=== PATIENT | male | born 1940 | race Caucasian/White ===

== ENCOUNTER → 2018-05-01 06:44 | Outpatient (CLI) | payer MEDICARE, SELFPAY ==
--- NOTE | 2018-05-01 10:01 | PFTCOMP_ITS ---
COMPLETE PULMONARY FUNCTION TEST INTERPRETATION Brief HPI: Patient is a 77 year old male, currently under the care of Henrietta Andujar, who presents to [facility] for complete pulmonary function tests secondary to diagnosis of COPD. Respiratory therapist reports good effort and reproducible results. Interpretation: Forced expiration spirometry shows no large airways obstructive ventilatory defect with an FEV1 of 87% predicted. There is no significant bronchodilator response by strict ATS criteria. Spirograms are of good quality and plateau normally. The respiratory flow volume loop shows a normal pattern. Lung volumes by body plethysmography show a decreased total lung capacity at 4.65 L, 70% predicted. All other lung volumes are reduced symmetrically. Diffusion capacity by carbon monoxide is normal at 85% predicted. The airway resistance is normal. No previous pulmonary function tests were available for review. Impression: Mild restrictive ventilatory defect in a pattern consistent with musculoskeletal restriction. Air flows and DLCO are preserved, so doubt COPD as a diagnosis.
== END ==
PROVIDERS: Family Provider Nurse Practitioner; PCP Nurse Practitioner; Referring Provider Nurse Practitioner; Visit Provider Nurse Practitioner
DX: J44.9 Chronic obstructive pulmonary disease, unspecified (principal)
CPT/HCPCS: 94060; 94726; 94729

== ENCOUNTER → 2018-08-28 09:10 | Outpatient (CLI) | payer MEDICARE, SELFPAY ==
[2018-09-01 01:08] LABS: Cashew <0.10 kU/L (Class 0); Egg, Whole <0.10 kU/L (Class 0); Gluten <0.10 kU/L (Class 0); Orange <0.10 kU/L (Class 0); Potato, White <0.10 kU/L (Class 0); Rice <0.10 kU/L (Class 0); Strawberry <0.10 kU/L (Class 0); Walnut, (Food) <0.10 kU/L (Class 0); Wheat <0.10 kU/L (Class 0)
[2018-09-01 09:09] LABS: Alternaria tenuis <0.10 kU/L (Class 0); Ash, White <0.10 kU/L (Class 0); Aspergillus fumigatus <0.10 kU/L (Class 0); Bermuda Grass <0.10 kU/L (Class 0); Birch <0.10 kU/L (Class 0); Black Walnut <0.10 kU/L (Class 0); Cat Hair / Dander,Stand <0.10 kU/L (Class 0); Cedar, Mountain <0.10 kU/L (Class 0); Cladosporium herbarum <0.10 kU/L (Class 0); Cockroach, American <0.10 kU/L (Class 0); Cottonwood <0.10 kU/L (Class 0); D farinae Mite <0.10 kU/L (Class 0); D pteronyssinus <0.10 kU/L (Class 0); Dog Epithelia <0.10 kU/L (Class 0); Elm, American White <0.10 kU/L (Class 0); Maple/Box Elder <0.10 kU/L (Class 0); Mulberry, White <0.10 kU/L (Class 0); Oak, White <0.10 kU/L (Class 0); Pecan <0.10 kU/L (Class 0); Penicillium Notatum <0.10 kU/L (Class 0); Pigweed, Rough <0.10 kU/L (Class 0); Ragweed, Short/Common <0.10 kU/L (Class 0); Russian Thistle <0.10 kU/L (Class 0); Sheep Sorrel <0.10 kU/L (Class 0); Sycamore, American <0.10 kU/L (Class 0); Timothy Grass <0.10 kU/L (Class 0)
[2018-09-01 11:01] LABS: Immunoglobulin E 32 IU/mL (0-100); Mouse Urine <0.10 kU/L (Class 0)
[2018-09-01 11:03] LABS: Banana <0.10 kU/L (Class 0); Peanut <0.10 kU/L (Class 0)
== END ==
PROVIDERS: Family Provider Nurse Practitioner; PCP Nurse Practitioner; Referring Provider Otolaryngology Otolaryngology/Facial Plastic Surgery; Visit Provider Otolaryngology Otolaryngology/Facial Plastic Surgery
DX: T78.40XA Allergy, unspecified, initial encounter (principal)
CPT/HCPCS: 36415; 82785; 86003

== ENCOUNTER → 2019-02-18 08:59 | Outpatient (CLI) | payer MEDICARE, SELFPAY ==
[2018-09-16 11:13] VITALS: BMI 27.8
--- NOTE | 2019-02-18 09:07 | RAD_ITS ---
STUDY: X-RAY CHEST REASON FOR EXAM: Male, 78 years old. Cough of one-month duration TECHNIQUE: 2 views COMPARISON: 07/18/2015. FINDINGS: Left pacemaker in place. Mild bibasilar subsegmental atelectasis versus infiltrate. Heart size is prominent. Unremarkable pulmonary vascularity. There is atherosclerotic calcification of the aortic arch with tortuosity. There are diffuse degenerative changes of the visualized thoracic spine. Normal visualized ribs, clavicles, and shoulders. There is no demonstrated abnormality of the visualized soft tissue structures of the upper abdomen. RAD/Chest PA and Lateral IMPRESSION: Mild bibasilar subsegmental atelectasis versus infiltrate. Left pacemaker in place. Electronically Signed: Jung Akhtar MD at 10:19 EDT Tel [phone], Service support ,
[2019-02-18 10:02] LABS: Absolute Lymphocyte Count 0.85 X10^3/uL (0.83-4.51); Absolute Neutrophil Count 2.3 X10^3/uL (2.0-7.7); Basophil# 0.03 X10^3/uL; Basophil% 0.8 % (0-1); Eosinophil# 0.11 X10^3/uL; Eosinophils% 2.8 % (0-5); Hematocrit 44.2 % (40-54); Hemoglobin 14.9 g/dL (13.0-16.5); Lymphocyte # 0.85 X10^3/ul (4.0); Lymphocyte % 21.5 % (19-41); Mean Corp Hgb Conc 33.7 g/dL (32-36); Mean Corpuscular Hgb 30.2 pg (27.0-32.0); Mean Corpuscular Volume 89.7 fL (80-94); Mean Platelet Vol. 10.5 fl (6.2-12.0); Monocyte# 0.62 X10^3/uL; Monocyte% 15.7 % (0-10); NRBC Flagged by Analyzer 0 % (0-5); Neutrophil # 2.32 X10^3/uL (2.7-7.7); Neutrophil % 58.7 % (47-70); Platelet Count 154 K/mm3 (150-450); RBC Distribution Width CV 14.1 % (11.6-14.6); RBC Distribution Width SD 45.3 fl (35.1-43.9); Red Blood Count 4.93 M/mm3 (4.6-6.2)
[2019-02-18 10:28] LABS: BNP,B-Type NATRIURETIC PEPTIDE 66.9 pg/mL (0-100)
[2019-02-18 10:39] LABS: ALB/GLOB Ratio 1.1 RATIO (0.9-2.4); AST(SGOT) 14 U/L (15-37); Alanine Aminotransfer ALT/SGPT 13 U/L (16-61); Albumin, Serum 3.6 g/dL (3.2-5.0); Alkaline Phosphatase 79 U/L (45-117); Anion Gap 5 (5-15); BUN 11 mg/dL (7-18); BUN/Creat Ratio 9.4 RATIO (10-20); Calcium,Total 8.4 mg/dL (8.5-10.1); Chloride 103 mmol/L (98-107); Creatinine, Serum 1.17 mg/dL (0.70-1.30); EST Glomerular Filtration Rate 64 mL/min (>60); Est Glom Filt Rate - Afr Amer 77 mL/min (>60); Globulin 3.2 g/dL (2.2-4.2); Glucose 99 mg/dL (74-106); Potassium 3.9 mmol/L (3.5-5.1); Protein, Total 6.8 g/dL (6.4-8.2); Sodium Level 138 mmol/L (136-145)
== END ==
PROVIDERS: Family Provider Nurse Practitioner; PCP Nurse Practitioner; Referring Provider Nurse Practitioner; Visit Provider Nurse Practitioner
DX: J18.9 Pneumonia, unspecified organism (principal); R05 Cough
CPT/HCPCS: 71046; 80053; 83880; 85025

== ENCOUNTER → 2019-02-25 16:50 | Outpatient (CLI) | payer MEDICARE, SELFPAY ==
[2018-09-16 11:13] VITALS: BMI 27.8
[2019-02-24 08:52] VITALS: BMI 26.7
--- NOTE | 2019-02-25 16:53 | CT_ITS ---
STUDY: LOW DOSE CT LUNG CANCER SCREENING REASON FOR EXAM: Male, 78 years old. 45 pack-year smoking history. RADIATION DOSAGE (If Supplied By Facility): CTDIvol = ( 2.55 ) mGy, DLP = ( 81.69 ) mGycm TECHNIQUE: No contrast was administered. Low dose technique was utilized (average mAS-38 and kVp 120). 1.25 mm axial source images with a slice interval of 1.25-mm were reconstructed in lung windows. 2.5 mm axial source images with a slice interval of 2.5-mm were reconstructed in lung windows. 5.0 mm axial source images with a slice interval of 5.0-mm were reconstructed in soft tissue windows. Nodule measured using lung windows on PACS and/or independent workstation with automated measurement of minimum and maximum diameter. Nodule measurement reported as average diameter rounded to the nearest whole number. Growth is defined as an increase ins size of greater than 1.5 mm. COMPARISON: Chest, February 18, 2019. NODULES: Total lung nodules (excluding granulomas): 0 Emphysema: There is mild emphysematous changes of the lungs with lower lobe bronchiectasis. Minimal dependent changes are seen posteriorly in both lung bases. Endobronchial lesion: Aorta: Atherosclerotic changes of the thoracic aorta without aneurysm. Coronary arteries: Heart: Heart is normal in size. There is a left-sided dual-lead cardiac pacemaker. Pulmonary artery: Normal Mediastinal nodes: Normal Other chest and abdominal findings: There are degenerative changes of the thoracic spine. CT/Low Dose CT Lung Screening IMPRESSION: Lung-RADS category 1 - Continue annual screening with LDCT in 12 months. IMPORTANT NOTES FOR USE: ACR Lung-RADS Version 1.0 Assessment Categories Release Date: October 26, 2013 Category: Coded 0-4 bases on nodule(s) with highest degree of suspicion. Negative screen is defined as categories 1 and 2; a positive screen is defined as categories 3 and 4. Category 3 and 4A nodules that are unchanged on interval CT should be coded as category 2, and individuals returned to screening in 12 months. Category 4X: Category 3 or 4 nodules with additional imaging findings that increase the suspicion of lung cancer, such as spiculation, GGN that doubles in size in 1 year, enlarged lymph notes, etc. Category Modifiers: S (significant finding unrelated to lung cancer) and C (prior history of treated lung cancer) may be added to the 0-4 Lung-RADS Electronically Signed: Quan Healy DO at 20:10 EDT Tel [phone], Service support ,
== END ==
PROVIDERS: Family Provider Nurse Practitioner; PCP Nurse Practitioner; Referring Provider Nurse Practitioner; Visit Provider Nurse Practitioner
DX: Z87.891 Personal history of nicotine dependence (principal); R05 Cough; J44.9 Chronic obstructive pulmonary disease, unspecified
CPT/HCPCS: G0297

== ENCOUNTER → 2019-04-29 07:36 | Outpatient (CLI) | payer MEDICARE, SELFPAY ==
[2019-03-17 10:50] VITALS: BMI 26.9
--- NOTE | 2019-04-29 07:38 | CT_ITS ---
STUDY: CT CHEST WITH CONTRAST REASON FOR EXAM: Male, 78 years old. Cough for 3 months. RADIATION DOSAGE (If Supplied By Facility): CTDIvol = ( 16.0 ) mGy, DLP = ( 567.39 ) mGycm TECHNIQUE: Transaxial imaging was performed following intravenous administration of IV Isovue 300 100. Multiplanar coronal and sagittal images were reformatted. Individualized dose optimization techniques were used for this CT. COMPARISON: None. FINDINGS: The lungs are slightly underexpanded with mild posterior dependent atelectasis. There is mild bilateral lower lobe bronchiectasis with mild basilar scarring within the right middle lobe and posterior bilateral lower lobes. There is thickening of the subpleural interstitial septal more significant along the posterior aspect of the lower and upper lobes consistent with interstitial lung disease. Remainder of the lung man are clear. There is no demonstrated pleural abnormality. Heart is normal in size with coronary artery calcifications. There is a left-sided pacemaker in place. Scattered lymph nodes demonstrated within the mediastinum with no distinct lymphadenopathy. Normal hilar regions. Normal enhanced pulmonary arteries. There is atherosclerotic calcification of the aortic arch with tortuosity and elongation of the aortic arch and descending thoracic aorta. There are multi-level degenerative changes of the thoracic spine. Upper abdomen: There is a low-attenuation structure within the right liver lobe near the gallbladder foci measuring 4.1 x 3.0 cm. A nonspecific low-attenuation lesion within the left liver lobe measures 0.8 x 0.9 cm. These are incompletely characterized by current study and most compatible with benign process such as cyst or hemangioma in the absence of known neoplasm. Remainder of the upper abdominal structures are unremarkable. CT/Chest WITH Contrast IMPRESSION: Findings suggestive of chronic interstitial lung disease and bilateral lower lobe atelectasis. Mild bilateral basilar scarring otherwise no acute process identified. No lymphadenopathy or distinct mass seen. Low-attenuation liver lesions as described above and . Further characterization with ultrasound recommended in nonacute setting to evaluate if this represents cyst versus solid lesion. Electronically Signed: Kylee Peng MD at 8:07 EDT , Service support ,
== END ==
PROVIDERS: Family Provider Nurse Practitioner; PCP Nurse Practitioner; Referring Provider Nurse Practitioner; Visit Provider Nurse Practitioner
DX: Z01.812 Encounter for preprocedural laboratory examination (principal); R05 Cough
CPT/HCPCS: 71260; Q9967

== ENCOUNTER → 2019-05-22 08:45 | Outpatient (CLI) | payer MEDICARE, SELFPAY ==
[2019-05-12 09:48] VITALS: BMI 26.9
[2019-05-22 09:25] VITALS: PULSE 71; PULSE 87; PULSE 89; PULSE 90; PULSE 91; PULSE 92; PULSE 95; O2SAT 92; O2SAT 93; O2SAT 95; O2SAT 96
--- NOTE | 2019-05-25 07:49 | PCM.PSN.6M ---
PSN 6 Minute Walk Test - 6 Minute Walk Test 6 Minute Walk Test: 6 Minute Walk Test PSN:6-Minute Walk Test Start: 05/22/19 09:24 Freq: Status: Active Protocol: [id number].6MINW Document 05/22/19 09:25 SMB (Rec: 05/22/19 09:27 B [id number]) 6 Minute Walk Test Date Performed 05/22/19 Time Performed 08:56 Height 5 ft 11 in Weight: 175 lb Weight in Pounds 175.[address]: Chris Laguna Assistive device used: None Pre-test Oxygen Delivery Method Room Air Pulse Ox (%) 96 Pulse Rate (60-100 beats/min) 71 Dyspnea Sintia Scale (0-10) 0 Exertion Sintia Scale (6-20) 11 1st minute Oxygen Delivery Method Room Air Pulse Ox (%) 93 Pulse Rate (60-100 beats/min) 87 2nd minute Oxygen Delivery Method Room Air Pulse Ox (%) 93 Pulse Rate (60-100 beats/min) 89 3rd minute Oxygen Delivery Method Room Air Pulse Ox (%) 92 Pulse Rate (60-100 beats/min) 95 4th minute Oxygen Delivery Method Room Air Pulse Ox (%) 93 Pulse Rate (60-100 beats/min) 91 5th minute Oxygen Delivery Method Room Air Pulse Ox (%) 93 Pulse Rate (60-100 beats/min) 90 6th minute Oxygen Delivery Method Room Air Pulse Ox (%) 93 Pulse Rate (60-100 beats/min) 92 Post-test Oxygen Delivery Method Room Air Pulse Ox (%) 95 Pulse Rate (60-100 beats/min) 87 Dyspnea Sintia Scale (0-10) 0.5 Exertion Sintia Scale (6-20) 13 Full Laps Walked 19 Partial Lap, Number of Tiles Walked 23 Total Distance Walked (ft) 1144 - Interpretation Interpretation: The patient ambulated 1144 feet over the course of 6 minutes beginning on room air without assistive devices or breaks. Pretesting oxygen saturation was noted to be 96% on room air. With ambulation, the jennie oxygen saturation was 92%. There was no significant exertional oxygen desaturation. - Recommendations Recommendations: There is no indication for the use of supplemental oxygen at this time.
== END ==
PROVIDERS: Family Provider Nurse Practitioner; PCP Nurse Practitioner; Referring Provider Internal Medicine Critical Care Medicine; Visit Provider Internal Medicine Critical Care Medicine
DX: J47.9 Bronchiectasis, uncomplicated (principal)
CPT/HCPCS: 94618

== ENCOUNTER → 2019-11-10 08:19 | Outpatient (CLI) | payer MEDICARE, SELFPAY ==
[2019-05-12 09:48] VITALS: BMI 26.9
--- NOTE | 2019-11-10 16:19 | PFTCOMP_ITS ---
COMPLETE PULMONARY FUNCTION TEST INTERPRETATION Brief HPI: Patient is an 79 year old male, currently under the care of myself, who presents to [facility] for complete pulmonary function tests secondary to diagnosis of bronchiectasis. Respiratory therapist reports good effort and reproducible results. Interpretation: Forced expiration spirometry shows no large airways obstructive ventilatory defect with an FEV1 of 90% predicted. There is no significant bronchodilator response by strict ATS criteria. Spirograms are of good quality and plateau normally. The respiratory flow volume loop shows a normal pattern. Lung volumes by body plethysmography show a decreased total lung capacity at 5.04 L, 79% predicted. All other lung volumes are reduced symmetrically. Diffusion capacity by carbon monoxide is normal at 99% predicted. The airway resistance is normal. Compared to previous pulmonary function tests from 05/01/2018, is been a significant improvement in DLCO by 14%. Impression: Mild restrictive ventilatory defect with normalization of diffusing capacity compared to previous study.
== END ==
PROVIDERS: Family Provider Nurse Practitioner; PCP Nurse Practitioner; Referring Provider Internal Medicine Critical Care Medicine; Visit Provider Internal Medicine Critical Care Medicine
DX: J47.9 Bronchiectasis, uncomplicated (principal)
CPT/HCPCS: 94060; 94726; 94729

== ENCOUNTER 2020-08-29 12:18 | Outpatient (RCR) | payer MEDICARE, SELFPAY ==
[2020-05-19 09:57] VITALS: BMI 25.5
== END 2020-09-01 23:59 ==
LOC: IMMUN 12:18
PROVIDERS: PCP Nurse Practitioner; Visit Provider Family Medicine
DX: Z23 Encounter for immunization (principal)
CPT/HCPCS: 0011A; 0012A

== ENCOUNTER → 2021-04-11 07:53 | Outpatient (CLI) | payer MEDICARE, SELFPAY ==
--- NOTE | 2021-04-11 07:58 | ECHOD_ITS ---
Reason For Study: Arrhythmia Procedure This was a 2D Doppler, Color Flow transthoracic echocardiogram. Technically difficult study. Parasternal images taken with patient laying on right side. Exam performed in department. Left Ventricle Normal LV size. Left ventricular systolic function is normal. The estimated ejection fraction is 60 %. Stage 1 diastolic dysfunction. No regional wall motion abnormalities noted. Right Ventricle Normal RV size. ICD or pacer leads identified within the right ventricle. Normal systolic function. Atria Normal left atrium. Normal right atrium. Mitral Valve Normal mitral valve. Tricuspid Valve Normal tricuspid valve. Mild (1+) tricuspid valve insufficiency. Pulmonary artery systolic pressure is 38 mmHg. Aortic Valve Trisinus/trileaflet aortic valve. Mild focal aortic valve calcification. Pulmonic Valve Normal pulmonic valve. Great Vessels Normal aortic root. The pulmonary artery is normal size. Normal inferior vena cava. Pericardium/Pleural No pericardial effusion. MMode/2D Measurements & Calculations LVIDd: 3.4 cm IVSd: 0.99 cm LA dimension: 3.0 cm LVIDs: 2.3 cm LVPWd: 1.2 cm RVDd: 3.2 cm FS: 32.8 % LAV(MOD-bp): 33.5 ml LA A4 area: 15.0 cm2 RA A4 area: 14.4 cm2 LAV(MOD-bp) Indexed: 16.6 ml/m2 LAV(MOD-sp2): 33.9 ml LAV(MOD-sp4): 30.1 ml Time Measurements MV dec time: 0.26 sec Doppler Measurements & Calculations MV E max tanner: 78.0 cm/sec Lat Peak E' Tanner: 6.4 cm/sec Med Peak E' Tanner: 5.2 cm/sec MV A max tanner: 141.1 cm/sec E/E' lat: 12.2 E/E' med: 14.9 MV E/A: 0.55 Ao V2 max: 133.9 cm/sec LV V1 max: 95.5 cm/sec PA V2 max: 88.6 cm/sec Ao max P.2 mmHg LV V1 max P.6 mmHg TR max tanner: 293.3 cm/sec TR max P.4 mmHg ECHO/Echo Complete Interpretation Summary Normal LV size. Left ventricular systolic function is normal. The estimated ejection fraction is 60 %. ICD or pacer leads identified within the right ventricle. Stage 1 diastolic dysfunction. Ordering Physician: Jordan Covarrubias Referring Physician: Henrietta Andujar Performed By: Filiberto Heredia RCS
[2021-04-11 09:42] LABS: AST(SGOT) 19 U/L (15-37); Alanine Aminotransfer ALT/SGPT 24 U/L (16-61); Albumin, Serum 3.8 g/dL (3.2-5.0); Alkaline Phosphatase 55 U/L (45-117); Cholesterol 139 mg/dL (200); Globulin 3.5 g/dL (2.2-4.2); High Density Lipoprotein 50 mg/dL; Protein, Total 7.3 g/dL (6.4-8.2); Triglycerides 88 mg/dL; Very Low Density Lipoprotein 18 mg/dL (5-40)
== END ==
PROVIDERS: PCP Nurse Practitioner; Visit Provider Internal Medicine Cardiovascular Disease
DX: E78.00 Pure hypercholesterolemia, unspecified (principal); I10 Essential (primary) hypertension; R94.31 Abnormal electrocardiogram [ECG] [EKG]; Z95.0 Presence of cardiac pacemaker
CPT/HCPCS: 36415; 80061; 80076; 93306

== ENCOUNTER 2021-07-12 21:42 | Emergency (ER) | payer MEDICARE, SELFPAY ==
[2021-07-12 21:47] VITALS: BP 171/83; PULSE 75; RESP 15; TEMP 37.1; O2SAT 95; BMI 24.5
--- NOTE | 2021-07-12 22:06 | EKG12_ITS ---
Test Reason : DYSRHYTHMIA Blood Pressure : / mmHG Vent. Rate : 064 BPM Atrial Rate : 064 BPM P-R Int : 182 ms QRS Dur : 102 ms QT Int : 440 ms P-R-T Axes : 029 -26 047 degrees QTc Int : 453 ms Normal sinus rhythm Normal ECG Confirmed by ASHLEY GALLEGOS, JYOTSNA ([id number]), assignment editor TIAN LOMAX ([id number]) on 07/13/2021 1:35:35 PM Referred By: LADAN Confirmed By:KEI RAMIREZ MD
--- NOTE | 2021-07-12 22:08 | EDS_ITS ---
HPI History of Present Illness Chief Complaint: Nausea/Vomiting Detail of Chief Complaint: Nausea and vomiting that started around 6 PM today. Informant: patient Narrative Narrative: Patient presents with nausea and vomiting since 6 PM. Patient states that he took a home test and was positive for COVID today. Patient's had symptoms x2 days. He has mild cough. He denies fever. He does complain of a headache. Patient thinks he is thrown up about 12 times today. He denies any diarrhea. He denies abdominal pain. He denies chest pain. Patient has had the COVID-vaccine but not the booster. No sick contacts known. [facility] Medical History Allergic rhinitis Bronchiectasis Carotid artery stenosis COPD (chronic obstructive pulmonary disease) Essential (primary) hypertension Glaucoma Hyperlipidemia Leukopenia Other retirement (current) drug therapy Sick sinus syndrome due to SA node dysfunction Sinus bradycardia Skin cancer Thrombocytopenia Home Medications hydrochlorothiazide 12.5 mg PO DAILY 07/14/15 [History Last Taken 07/17/15] amlodipine 5 mg tablet 5 mg PO DAILY #30 tab 09/22/18 [Rx Last Taken Unknown] potassium chloride 10 mEq tablet,extended release(part/cryst) 10 meq PO DAILY #30 tab 09/22/18 [Rx Last Taken Unknown] brimonidine 0.1 % eye drops 1 drp OPHTHALMIC BID ml 02/23/20 [History Last Taken Unknown] latanoprostene bunod 0.024 % eye drops 1 drp OPHTHALMIC QPM 02/23/20 [History Last Taken Unknown] loratadine 10 mg tablet 10 mg PO DAILY 02/23/20 [History Last Taken Unknown] pravastatin 40 mg tablet 40 mg PO QHS tab 02/23/20 [History Last Taken Unknown] triamcinolone acetonide 0.1 % topical cream 1 applic TOPICAL DAILY PRN 03/23/21 [History Last Taken Unknown] ergocalciferol (vitamin D2) 1,250 mcg (50,000 unit) capsule 50,000 unit PO 2XW cap 04/06/21 [History Last Taken Unknown] ondansetron 4 mg PO Q8H PRN PRN #10 tab 07/12/21 [Rx Last Taken Unknown] Allergy/AdvReac Type Severity Reaction Status Date / Time lisinopril Allergy Other Verified 07/12/21 21:49 Family History Father Skin cancer Mother , brain aneurysm No problems noted. 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) Skin cancer removal Social History Smoking Status: Former smoker Tobacco: How many years used: 40 how long ago did patient quit smokin, 2ppd second hand exposure: Yes alcohol intake: never substance use type: does not use caffeine: Yes Type: coffee Number of servings: 3 what type of physical activity do you participate in: none seatbelt use: always do you feel safe at home: Yes ROS ROS ED Constitutional Constitutional ED: Reports systems reviewed and no addt'l complaints, except as documented; Denies body ache(s), change in weight or chills Eyes Eyes: Denies acute decrease in peripheral vision, change in vision, double vision or loss of vision ENT ENT ED: Reports none; Denies ear pain, lip swelling, loss taste/smell, neck pain, otalgia or sore throat Cardiovascular Cardiovascular: Reports none; Denies abdominal pain, chest pain with activity, leg edema, lightheadedness, palpitations, rapid heart rate or syncope Respiratory/Chest Respiratory/Chest: Reports none and cough; Denies change in mental status, dry cough, hemoptysis, shortness of breath at rest or shortness of breath with exertion Gastrointestinal Gastrointestinal: Reports none, nausea and vomiting; Denies abdominal pain, change in stool character, diarrhea, hematemesis, hematochezia, melena or rectal bleeding Genitourinary Genitourinary ED: Reports none; Denies abdominal discomfort, anuria, dysuria, genital pain or polyuria Musculoskeletal Musculoskeletal: Reports none and myalgias; Denies arthralgias, back pain, difficulty walking, extremity pain or muscle weakness Integumentary Reports none; Denies abscess or rash Neurologic Neurologic: Reports none and headache(s); Denies abnormal gait, confusion, focal weakness, frequent falls, loss of vision, numbness, paresthesias, radicular michelle n, vertigo or weakness Psychiatric Psychiatric: Reports systems reviewed and no addt'l complaints, except as documented and none; Denies behavioral changes, confusion, difficulty concentrating, hallucinations, suicidal ideation, tactile hallucinations or visual hallucinations Endocrine Endocrinology: Denies none, cold intolerance, excessive sweating, fatigue or heat intolerance Hematologic/Lymphatic Hematologic/Lymphatic: Reports none; Denies anemia, easy bleeding or easy bruising Allergic/Immunologic Allergic/Immunologic ED: Denies as per HPI, none, lip swelling, mouth swelling, throat swelling, tongue swelling or hives EXAM Physical Exam Const Vital Signs: 07/12/21 21:47 Temperature 98.7 F Temperature Source Oral Pulse Rate 75 Respiratory Rate 15 Blood Pressure 171/83 H Blood Pressure Mean 112 Pulse Ox 95 Oxygen Delivery Method Room Air Positive well nourished and well developed General Appearance ED: well developed and NAD HEENT Reports TM's clear and moist mucous membranes normocephalic and atraumatic; Negative for trauma or tenderness Tympanic Membrane ED: Yes TM's clear Eyes PERRL and EOMs intact bilaterally General Eye ED: Negative for pale conjunctiva or scleral icterus Neck no lymphadenopathy, supple and no JVD General: Negative for tenderness Chest Wall inspection of chest normal and palpation of chest normal Chest: Negative for tenderness Resp Effort and Inspection: Negative for respiratory distress or pain with movement Auscultation: rales and rhonchi; Negative for wheezes or diminished lung sounds Cardio regular rate, regular rhythm, S1 normal heart sound, S2 normal heart sound and no murmurs Peripheral Pulses: pulses 2+ throughout GI normal to inspection, nondistended, normoactive bowel sounds, soft to palpation, non-tender, non-distended and no masses Back/Spine no CVA tenderness and no thoracic nor lumbar tenderness Extremity normal to inspection General Extremety ED: Negative for edema General Extremity: Negative for edema Neuro oriented x3, CN's II-XII intact bilaterally, no sensory deficits noted and gait normal Sensorium / Orientation: awake, alert, oriented to person, oriented to place and oriented to time Motor Exam: strength 5/5 throughout and strength abnormal Psych mental status grossly normal Skin no rashes or lesions noted and no wounds MDM MDM MDM Narrative Medical decision making narrative: IV line established on arrival. Patient was given maintenance normal saline. He was given Zofran 4 mg IV. Patient had no further vomiting and felt improved. Patient was positive for COVID-19 on rapid test. Chest x-ray unremarkable. I discussed with patient monoclonal antibody infusion however patient has concerns about it and does not want to proceed with it at this time. I did explain that he has to have it within the first 10 days of symptom onset and that he cannot be hypoxic and he would have to meet certain criteria. Patient understands but does not want to move forward at this time. Lab Data Attestation: I reviewed the patient's lab results. Labs: Laboratory Results - last 24 hr 07/12/21 07/12/21 22:28 22:28 WBC 3.2 L RBC 4.93 Hgb 14.4 Hct 42.0 MCV 85.2 MCH 29.2 MCHC 34.3 RDW Std Deviation 44.8 H RDW Coeff of Rodolfo 14.5 Plt Count 106 L MPV 11.2 Immature Gran % (Auto) 0.600 Neut % (Auto) 84.0 H Lymph % (Auto) 9.4 L Prentiss % (Auto) 5.7 Eos % (Auto) 0.0 Baso % (Auto) 0.3 Absolute Neuts (auto) 2.7 Absolute Lymphs (auto) 0.30 L Nucleated RBC % 0 Differential Comment SCANNED Diff Path Review May foll Sodium 129 L Potassium 3.1 L Chloride 96 L Carbon Dioxide 26.0 Anion Gap 7 BUN 18 Creatinine 0.94 Estim Creat Clear Calc 63.42 Est GFR (MDRD) Af Amer 99 Est GFR (MDRD) Non-Af 82 BUN/Creatinine Ratio 19.2 Glucose 116 H Calcium 8.6 Troponin I High Sens 9 Radiography Chest X-Ray - ED: 1 View Diagnostic Testing: Clinical Impression(s) from Imaging Studies Chest X-Ray 07/12/21 22:16 IMPRESSION: 1. No acute cardiopulmonary disease. Electronically Signed: Ramsey Infante DO at 23:14 EST Tel , Service support , 1 view chest x-ray obtained interpreted by myself as no acute disease process. Radiologist in agreement. EKG Initial EKG: Attestation: I personally reviewed and interpreted this EKG as follows: Comments: Sinus rhythm with a ventricular rate of 64 bpm with no acute ST segment changes Discharge Plan Triage Chief Complaint: Nausea/Vomiting ED Provider: Stefanie Ruiz Dx/Rx/DC Orders Clinical Impression: COVID-19, Vomiting Instructions: ED Vomiting (Adult), Caring for Someone Who Has COVID-19 Prescriptions: New ondansetron [ondansetron] 4 MG tablet 4 mg PO Q8H PRN PRN (Reason: Nausea) Qty: 10 RF: 0 No Action pravastatin 40 mg tablet 40 mg PO QHS RF: 0 loratadine [Allergy Relief (loratadine)] 10 mg tablet 10 mg PO DAILY RF: 0 Alphagan P 0.1 % drops 1 drp OPHTHALMIC BID RF: 0 Vyzulta 0.024 % drops 1 drp OPHTHALMIC QPM RF: 0 triamcinolone acetonide 0.1 % cream 1 applic TOPICAL DAILY PRNRF: 0 ergocalciferol (vitamin D2) 1,250 mcg (50,000 unit) capsule 50,000 unit PO 2XW RF: 0 hydrochlorothiazide 12.5 MG capsule 12.5 mg PO DAILY RF: 0 amlodipine 5 mg tablet 5 mg PO DAILY Qty: 30 RF: 11 potassium chloride 10 mEq tablet,ER particles/crystals 10 meq PO DAILY Qty: 30 RF: 11 Primary Care Provider: Henrietta Andujar NP Referrals: Henrietta Andujar ACCELERATOR SYSTEMS DIRECTOR, ACCELERATOR SYSTEMS DIRECTOR-C [Primary Care Provider] - Disposition Disposition: Home, Self Care
--- NOTE | 2021-07-12 22:16 | RAD_ITS ---
INDICATION: cough EXAMINATION/TECHNIQUE: X-RAY - XR Chest 1 View COMPARISON: None. FINDINGS: LINES/DEVICES: None. Left chest cardiac electronic device with leads over the right atrium and right ventricle. LUNGS: The liver, left greater than right, linear opacities likely representing scarring and/or atelectasis. Lungs otherwise clear without nodule or mass, airspace opacity or abnormal interstitial pattern. No pleural effusion or pneumothorax. MEDIASTINUM AND CARDIOVASCULAR STRUCTURES: Normal size and contour of the cardiomediastinal silhouette. No evidence of pulmonary vascular congestion. BONES AND SOFT TISSUES: No abnormality within limits of the exam. RAD/Chest 1 View (Portable) IMPRESSION: 1. No acute cardiopulmonary disease. Electronically Signed: Ramsey Infante DO at 23:14 EST Tel , Service support ,
[2021-07-12] MEDS: 0.9% Normal Saline 1,000 ML 150 ML IV (22:32)
[2021-07-12] MEDS: Ondansetron 4 MG/2 ML Vial IV (22:32)
[2021-07-12 22:46] LABS: Absolute Neutrophil Count 2.7 X10^3/uL (2.0-7.7); Basophil# 0.01 X10^3/uL; Basophil% 0.3 % (0-1); Hemoglobin 14.4 g/dL (13.0-16.5); Lymphocyte % 9.4 % (19-41); Mean Corp Hgb Conc 34.3 g/dL (32-36); Mean Corpuscular Hgb 29.2 pg (27.0-32.0); Mean Corpuscular Volume 85.2 fL (80-94); Mean Platelet Vol. 11.2 fl (6.2-12.0); Monocyte# 0.18 X10^3/uL; Monocyte% 5.7 % (0-10); NRBC Flagged by Analyzer 0 % (0-5); Neutrophil # 2.67 X10^3/uL (2.7-7.7); POSITIVE DIFFERENTIAL YES; Platelet Count 106 K/mm3 (150-450); RBC Distribution Width CV 14.5 % (11.6-14.6); RBC Distribution Width SD 44.8 fl (35.1-43.9); Red Blood Count 4.93 M/mm3 (4.6-6.2); White Blood Count 3.2 K/mm3 (4.4-11.0)
[2021-07-12 23:05] LABS: Anion Gap 7 (5-15); BUN 18 mg/dL (7-18); BUN/Creat Ratio 19.2 RATIO (10-20); Calcium,Total 8.6 mg/dL (8.5-10.1); Chloride 96 mmol/L (98-107); Creatinine, Serum 0.94 mg/dL (0.70-1.30); EST Glomerular Filtration Rate 82 mL/min (>60); Est Glom Filt Rate - Afr Amer 99 mL/min (>60); Estimated Creatinine Clearance 63.42 ml/min; Glucose 116 mg/dL (74-106); Potassium 3.1 mmol/L (3.5-5.1); Sodium Level 129 mmol/L (136-145); Troponin-I HS 9 pg/mL (3.0-78.0)
[2021-07-12] MEDS: Potassium Chloride Oral Tablet 20 MEQ 40 MEQ PO (23:20)
[2021-07-12 23:27] LABS: Differential Indicated SCAN CRITERIA MET
[2021-07-12 23:30] LABS: Differential Comment SCANNED
[2021-07-13 13:04] LABS: Pathologist Review Reviewed
== END 2021-07-12 23:51 | disposition home or self-care (01) ==
PROVIDERS: Emergency Provider Emergency Medicine; PCP Nurse Practitioner; Visit Provider Emergency Medicine
DX: U07.1 COVID-19 (principal); J44.9 Chronic obstructive pulmonary disease, unspecified; I49.5 Sick sinus syndrome; I10 Essential (primary) hypertension; Z87.891 Personal history of nicotine dependence; E78.5 Hyperlipidemia, unspecified; Z85.828 Personal history of other malignant neoplasm of skin; I65.29 Occlusion and stenosis of unspecified carotid artery; H40.9 Unspecified glaucoma; Z86.2 Personal history of diseases of the blood and blood-forming organs and certain disorders involving the immune mechanism; Z79.899 Other long term (current) drug therapy; Z95.810 Presence of automatic (implantable) cardiac defibrillator
CPT/HCPCS: 71045; 80048; 84484; 85025; 87040; 87426; 93005; 96361; 96374; 99285; J7030; J2405

== ENCOUNTER 2021-07-14 10:40 | Emergency (ER) | payer MEDICARE, SELFPAY ==
[2021-07-14] VITALS (8 sets, daily range): BP systolic 128–150; BP diastolic 79–90; PULSE 64–75; RESP 16–22; TEMP 36.6; O2SAT 90–94; BMI 23.7
[2021-07-14] MEDS: Ondansetron 4 MG/2 ML Vial IV (11:22)
[2021-07-14] MEDS: 0.9% Normal Saline 1,000 ML 1000 ML IV (11:22)
[2021-07-14 11:28] LABS: Absolute Lymphocyte Count 0.45 X10^3/uL (0.83-4.51); Hematocrit 42.9 % (40-54); Hemoglobin 14.6 g/dL (13.0-16.5); Lymphocyte # 0.45 X10^3/ul (0.83-4.51); Mean Corpuscular Hgb 28.7 pg (27.0-32.0); Mean Corpuscular Volume 84.4 fL (80-94); Mean Platelet Vol. 10.7 fl (6.2-12.0); Monocyte# 0.27 X10^3/uL; Monocyte% 7.2 % (0-10); NRBC Flagged by Analyzer 0 % (0-5); Neutrophil # 2.99 X10^3/uL (2.7-7.7); POSITIVE DIFFERENTIAL YES; Platelet Count 142 K/mm3 (150-450); RBC Distribution Width CV 14.6 % (11.6-14.6); RBC Distribution Width SD 44.8 fl (35.1-43.9); Red Blood Count 5.08 M/mm3 (4.6-6.2); White Blood Count 3.7 K/mm3 (4.4-11.0)
--- NOTE | 2021-07-14 11:28 | RAD_ITS ---
STUDY: X-RAY CHEST REASON FOR EXAM: Male, 81 years old. Bilateral rales concern for COVID-pneumonia TECHNIQUE: Single AP portable view of the chest. COMPARISON: Comparison is made with prior study dated 07/12/2021. FINDINGS: EKG electrodes are seen. Persistent left lower lobe infiltrate. Increased markings at the right lung base. There is no demonstrated pleural abnormality. Normal size heart. A left-sided dual-chamber pacemaker is seen. Normal mediastinum and enmanuel. Normal visualized pulmonary arteries. Normal visualized aortic arch and descending thoracic aorta. Normal visualized thoracic spine. Normal visualized ribs, clavicles, and shoulders. There is no demonstrated abnormality of the visualized soft tissue structures of the upper abdomen. RAD/Chest 1 View (Portable) IMPRESSION: Persistent left lower lobe infiltrate with increased markings at the right lung base. Electronically Signed: Moises Lr MD at 11:40 EST , Service support ,
[2021-07-14 11:33] LABS: Differential Indicated SCAN CRITERIA MET
--- NOTE | 2021-07-14 11:37 | EDS_ITS ---
HPI History of Present Illness Chief Complaint: Shortness of Breath Informant: patient and spouse/S.O. Onset/Context/Timing Onset: Days (Onset of illness Saturday. Severe vomiting Saturday and persistent since) Context: Sudden Onset Timing: Continuous and Waxes and wanes Quality: Flulike symptoms with positive COVID test Current Severity: Mild Maximum Severity: Moderate Worsened by: Attempt to eat or drink anything Relieved by: Nothing Associated Symptoms Associated Symptoms: Generalized malaise, thirst, orthostatic symptoms Narrative Narrative: Patient is a 81-year-old male who has been vaccinated and tested positive for COVID on Saturday. Work-up at that time was unremarkable. He was offered the monoclonal antibody therapy but declined. He presents because his pulse ox read 88% at rest. He does report mild headache, fatigue, generalized weakness. He does endorse mild headache. He denies double vision, blurred vision loss of vision. Nuys ringing ears decreased hearing. Denies loss of taste or smell. He does report mild upper respiratory symptoms. Does have a cough. The cough is productive. Sputum is clear to white. He denies chest pain, exertional symptoms. He denies diarrhea. He denies hematemesis, melena medic easier. He does report decreased urine output. He does have some aches. Prior similar symptoms: Yes Recent Illness/Hospitalization: Yes [facility] Medical History Allergic rhinitis Bronchiectasis Carotid artery stenosis COPD (chronic obstructive pulmonary disease) Essential (primary) hypertension Glaucoma Hyperlipidemia Leukopenia Other [facility] (current[facility] drug therapy Sick sinus syndrome due to SA node dysfunction Sinus bradycardia Skin cancer Thrombocytopenia Home Medications hydrochlorothiazide 12.5 mg PO DAILY 07/14/15 [History Last Taken 07/17/15] amlodipine 5 mg tablet 5 mg PO DAILY #30 tab 09/22/18 [Rx Last Taken Unknown] potassium chloride 10 mEq tablet,extended release(part/cryst) 10 meq PO DAILY #30 tab 09/22/18 [Rx Last Taken Unknown] brimonidine 0.1 % eye drops 1 drp OPHTHALMIC BID ml 02/23/20 [History Last Taken Unknown] latanoprostene bunod 0.024 % eye drops 1 drp OPHTHALMIC QPM 02/23/20 [History Last Taken Unknown] loratadine 10 mg tablet 10 mg PO DAILY 02/23/20 [History Last Taken Unknown] pravastatin 40 mg tablet 40 mg PO QHS tab 02/23/20 [History Last Taken Unknown] triamcinolone acetonide 0.1 % topical cream 1 applic TOPICAL DAILY PRN 03/23/21 [History Last Taken Unknown] ergocalciferol (vitamin D2) 1,250 mcg (50,000 unit) capsule 50,000 unit PO 2XW cap 04/06/21 [History Last Taken Unknown] ondansetron 4 mg PO Q8H PRN PRN #10 tab 07/12/21 [Rx Last Taken Unknown] dexamethasone [Decadron] 6 mg PO DAILY #10 tab 07/14/21 [Rx Last Taken Unknown] Allergy/AdvReac Type Severity Reaction Status Date / Time lisinopril Allergy Other Verified 07/14/21 10:43 Family History Father Skin cancer Mother , brain aneurysm No problems noted. 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 Luciano Jaramillo MD) household members: spouse Smoking Status: Former smoker Tobacco: How many years used: 40 how long ago did patient quit smokin, 2ppd second hand exposure: Yes alcohol intake: never substance use type: does not use caffeine: Yes Type: coffee Number of servings: 3 what type of physical activity do you participate in: none seatbelt use: always do you feel safe at home: Yes ROS ROS ED Constitutional Constitutional ED: Reports chills, fever(s), subjective and weight loss Eyes Eyes: Denies blurry vision, change in vision or diplopia ENT ENT ED: Reports rhinorrhea; Denies ear pain or sore throat Cardiovascular Cardiovascular: Denies chest pain, orthopnea, palpitations or paroxysmal nocturnal dyspnea Respiratory/Chest Respiratory/Chest: Reports cough, dyspnea, dyspnea on exertion and sputum; Denies orthopnea or paroxysmal nocturnal dyspnea Gastrointestinal Gastrointestinal: Reports melena, nausea and vomiting; Denies abdominal pain, constipation or diarrhea Genitourinary Genitourinary ED: Denies dysuria, hematuria or urinary frequency Musculoskeletal Musculoskeletal: Reports arthralgias and myalgias; Denies back pain or neck pain Integumentary Denies rash Neurologic Neurologic: Reports headache(s) and weakness; Denies paresthesias Endocrine Endocrinology: Denies polydipsia, polyphagia or polyuria Hematologic/Lymphatic Hematologic/Lymphatic: Denies anemia, easy bleeding or easy bruising Allergic/Immunologic Allergic/Immunologic ED: Denies mouth swelling or urticaria EXAM Physical Exam Const Vital Signs: 07/14/21 10:41 07/14/21 11:24 07/14/21 12:08 Temperature 97.8 F 97.8 F Temperature Source Temporal Temporal Pulse Rate 75 64 68 Respiratory Rate 16 17 16 Respiratory Effort Respiratory Depth Respiratory Pattern Blood Pressure 150/90 H 128/79 H Blood Pressure Mean 110 95 Pulse Ox 92 94 91 Oxygen Delivery Method Room Air Room Air Room Air 07/14/21 12:11 Temperature Temperature Source Pulse Rate Respiratory Rate Respiratory Effort Normal Respiratory Depth Normal Respiratory Pattern Normal Blood Pressure Blood Pressure Mean Pulse Ox Oxygen Delivery Method Room Air Positive well nourished and well developed General Appearance ED: well developed and NAD; Negative for cyanotic, diaphoretic or pallor HEENT Reports TM's clear and dry mucous membranes HEENT Narrative: Ears normal. Nares patent. Uvula midline. No erythema or exudate. Negative for trauma or tenderness Tympanic Membrane ED: Yes TM's clear Mouth ED: Yes dry mucous membranes Mouth: dry mucous membranes Eyes PERRL and EOMs intact bilaterally General Eye ED: Negative for pale conjunctiva or scleral icterus Neck no lymphadenopathy, supple and no JVD General: Negative for tenderness Chest Wall inspection of chest normal Resp normal respiratory effort and No clear to auscultation bilaterally Effort and Inspection: pain with movement Auscultation: rales bilateral (Right greater than left) 1/[address] up and localized Cardio regular rate, regular rhythm, S1 normal heart sound, S2 normal heart sound and no murmurs GI normal to inspection, nondistended, normoactive bowel sounds and non-tender Palpation: soft Back/Spine no CVA tenderness Cervical Spine: Negative for cervical spine tenderness Thoracic Spine / Upper Back: Negative for thoracic spinal tenderness or parasp inal muscle tenderness Extremity normal to inspection General Extremety ED: Negative for edema or tenderness General Extremity: Negative for edema Neuro oriented x3, CN's II-XII intact bilaterally and no sensory deficits noted Sensorium / Orientation: alert Motor Exam: strength 5/5 throughout Psych mental status grossly normal Skin no rashes or lesions noted and no wounds General Skin Exam: Negative for jaundice or pallor MDM MDM MDM Narrative Medical decision making narrative: Patient presents with symptoms due to COVID. Since he has bilateral rales chest x-ray is obtained. Clinically suspect he has pneumonia. Blood work was obtained to assess white count, H&H to rule out anemia and electrolytes to assess renal function as well as anion gap. Patient was administered fluids. Patient's pulse ox at rest is 90%. Patient desaturated at rest. He has a sat of 92% with ambulation on 2 L of oxygen by nasal cannula. social service manager was consulted to arrange for outpatient oxygen. He received first dose of Decadron in the Emergency Department discharged with Decadron. Patient's hyponatremia was noted prior visit this week. 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 His transaminases are elevated because of COVID. Lab Data Attestation: I reviewed the patient's lab results. Lab results narrative: White count is low consistent with COVID. H&H is normal. Differential is unremarkable. Comprehensive metabolic panel is remarkable for a sodium of 128 and chloride of 94. We will compare prior sodium. This may represent SIADH due to COVID. AST and ALT are elevated at 182 respectively at in all likelihood to COVID. Labs: Laboratory Results - last 24 hr 07/14/21 07/14/21 11:15 11:15 WBC 3.7 L RBC 5.08 Hgb 14.6 Hct 42.9 MCV 84.4 MCH 28.7 MCHC 34.0 RDW Std Deviation 44.8 H RDW Coeff of Rodolfo 14.6 Plt Count 142 L MPV 10.7 Immature Gran % (Auto) 0.800 Neut % (Auto) 80.0 H Lymph % (Auto) 12.0 L Warrick % (Auto) 7.2 Eos % (Auto) 0.0 Baso % (Auto) 0.0 Absolute Neuts (auto) 3.0 Absolute Lymphs (auto) 0.45 L Nucleated RBC % 0 Differential Comment Diff Path Review May foll Platelet Estimate SLT DEC RBC Morphology NORM C+C Sodium 128 L Potassium 3.2 L Chloride 94 L Carbon Dioxide 27.0 Anion Gap 7 BUN 21 H Creatinine 0.90 Estim Creat Clear Calc 66.24 Est GFR (MDRD) Af Amer 103 Est GFR (MDRD) Non-Af 85 BUN/Creatinine Ratio 23.2 H Glucose 94 Calcium 8.8 Total Bilirubin 1.00 AST 100 H ALT 82 H Alkaline Phosphatase 73 Total Protein 7.1 Albumin 3.4 Globulin 3.7 Albumin/Globulin Ratio 0.9 Radiography Chest X-Ray - ED: 1 View (Patient has an infiltrate noted left lower lobe and increased markings right lower lobe. He has findings consistent with COVID.), Read by ED Physician (The chest x-ray was interpreted by me at 1130.), Normal, Heart and Bony Structures Diagnostic Testing: Clinical Impression(s) from Imaging Studies Chest X-Ray 07/14/21 11:28 IMPRESSION: Persistent left lower lobe infiltrate with increased markings at the right lung base. Electronically Signed: Moises Lr MD at 11:40 EST , Service support , Discharge Plan Triage Chief Complaint: Shortness of Breath ED Provider: Luciano Jaramillo Dx/Rx/DC Orders Clinical Impression: 2019 novel coronavirus-infected pneumonia (NCIP), Acute respiratory failure with hypoxia, Hyponatremia, Syndrome of inappropriate ADH (SIADH) secretion, Nausea & vomiting, Acute dehydration Instructions: Coronavirus Disease 2019 (COVID-19): Caring for Yourself or Others, COVID-19: Lying in a Prone Position (Proning), ED Hyponatremia Prescriptions: New dexamethasone [Decadron] 6 mg tablet 6 mg PO DAILY Qty: 10 RF: 0 No Action pravastatin 40 mg tablet 40 mg PO QHS RF: 0 loratadine [Allergy Relief (loratadine)] 10 mg tablet 10 mg PO DAILY RF: 0 Alphagan P 0.1 % drops 1 drp OPHTHALMIC BID RF: 0 Vyzulta 0.024 % drops 1 drp OPHTHALMIC QPM RF: 0 triamcinolone acetonide 0.1 % cream 1 applic TOPICAL DAILY PRNRF: 0 ergocalciferol (vitamin D2) 1,250 mcg (50,000 unit) capsule 50,000 unit PO 2XW RF: 0 hydrochlorothiazide 12.5 MG capsule 12.5 mg PO DAILY RF: 0 ondansetron [ondansetron] 4 MG tablet 4 mg PO Q8H PRN PRN (Reason: Nausea) Qty: 10 RF: 0 amlodipine 5 mg tablet 5 mg PO DAILY Qty: 30 RF: 11 potassium chloride 10 mEq tablet,ER particles/crystals 10 meq PO DAILY Qty: 30 RF: 11 Primary Care Provider: Henrietta Andujar NP Referrals: Henrietta Andujar NP, PILOT PLANT OPERATOR-C [Primary Care Provider] - 1 Week Activity Restrictions/Additional Instructions: Return if you are having problems maintaining a pulse ox above 89%. Take Decadron until gone Disposition Disposition: Home, Self Care
[2021-07-14 11:40] LABS: ALB/GLOB Ratio 0.9 RATIO (0.9-2.4); AST(SGOT) 100 U/L (15-37); Alanine Aminotransfer ALT/SGPT 82 U/L (16-61); Albumin, Serum 3.4 g/dL (3.2-5.0); Alkaline Phosphatase 73 U/L (45-117); Anion Gap 7 (5-15); BUN 21 mg/dL (7-18); BUN/Creat Ratio 23.2 RATIO (10-20); Calcium,Total 8.8 mg/dL (8.5-10.1); Chloride 94 mmol/L (98-107); EST Glomerular Filtration Rate 85 mL/min (>60); Est Glom Filt Rate - Afr Amer 103 mL/min (>60); Estimated Creatinine Clearance 66.24 ml/min; Globulin 3.7 g/dL (2.2-4.2); Glucose 94 mg/dL (74-106); Potassium 3.2 mmol/L (3.5-5.1); Protein, Total 7.1 g/dL (6.4-8.2); Sodium Level 128 mmol/L (136-145)
[2021-07-14 11:56] LABS: Platelet Estimate SLT DEC (ADEQ); Red Cell Morphology NORM C+C NORMAL (NORM C&C)
[2021-07-14] MEDS: Metoclopramide 10 MG/2 ML Vial 5 MG IV (12:31)
[2021-07-14] MEDS: dexAMETHasone 4 MG Tablet 6 MG PO (12:31)
--- NOTE | 2021-07-14 13:10 | CM.ED ---
SOCIAL WORK Referral Source: Dr. Jaramillo Reason for Consult: COVID-19 positive, requires home O2-2L Patient from home with . Patient has pulse ox at home. Patient in agreement to have O2 set up through [employer]. Clinical information and [employer] faxed and called to [employer]. RT reviewed home O2 with patient. CM notified for follow up. Plan: Home with home O2 through [employer] Vitaly Becker, REIMBURSEMENT REP, BYPRODUCTS EXTRACTOR
--- NOTE | 2021-07-14 15:35 | CASEMGMT ---
JANEY BRYANT ED O2 f/u call: Pt discharged from ED today w/O2 @ 2l/m through [employer]. This JANEY BRYANT spoke w/. She states she has called [employer] to let them know they are home but [employer] informed her they have not received the order yet. made aware this JANEY BRYANT will f/u with [employer] after this phone call w/her and will verify they have received the O2 order. voices appreciation. states pt was just in the restroom and had emesis. She confirms she does have anti-nausea med that was ordered on in ED and will give to pt. Pt's son will be picking up medication that was prescribed today in ED @ [facility] this PM. denies having further questions or concerns and thanked JANEY BRYANT for calling. JANEY BRYANT called [employer], who states they just received the order and are processing it now. They will contact pt/ soon to arrange for home O2 delivery. Jozef JOHNS RN, CM
[2021-07-17 14:01] LABS: Pathologist Review Reviewed
--- NOTE | 2021-07-19 13:46 | CASEMGMT ---
ER RNCM Covid Home Oxygen DC F/U Call: Called patient's number listed on demographics, no answer. VM left to return call if having any needs, questions or concerns. Reena Barnett RNCM
--- NOTE | 2021-07-25 17:20 | CASEMGMT ---
JANEY BRYANT ED COVID Home Oxygen follow-up: This RN CM placed telephone call to patient's number listed on demographics. Patient's Shelby answered and stated that patient was currently in the shower. Patient's states patient is doing great with SpO2 94% while using home oxygen. reports patient wearing oxygen only intermittently and SpO2 92% on room air at rest. Patient denies shortness of breath and has a good appetite without nausea or vomiting. Denies fever or any pain. Patient has all prescribed medications. Patient's reports they have spoke with PCP on the telephone but have been hesitant to schedule appointment given recent very cold temperatures. states she plans to schedule appointment for next week. Patient's denies questions or concerns, expresses appreciation for follow-up call. JANEY Mckeon CM
== END 2021-07-14 14:18 | disposition home or self-care (01) ==
PROVIDERS: Emergency Provider Emergency Medicine; PCP Nurse Practitioner; Visit Provider Emergency Medicine
DX: U07.1 COVID-19 (principal); J96.01 Acute respiratory failure with hypoxia; E22.2 Syndrome of inappropriate secretion of antidiuretic hormone; E87.1 Hypo-osmolality and hyponatremia; E86.0 Dehydration; J12.82 Pneumonia due to coronavirus disease 2019; R11.2 Nausea with vomiting, unspecified; Z87.891 Personal history of nicotine dependence
CPT/HCPCS: 71045; 80053; 85025; 96361; 96374; 96375; 99284; J7030; A4216; J2405

== ENCOUNTER → 2024-07-09 | Outpatient (CLI) | payer MEDICARE, SELFPAY ==
[2024-07-09 10:51] LABS: ALB/GLOB Ratio 1.2 RATIO (0.9-2.4); AST(SGOT) 19 U/L (15-37); Alanine Aminotransfer ALT/SGPT 15 U/L (16-61); Albumin, Serum 3.8 g/dL (3.2-5.0); Alkaline Phosphatase 63 U/L (45-117); Anion Gap 6 (5-15); BUN 15 mg/dL (7-18); BUN/Creat Ratio 13.4 RATIO (10-20); Calcium,Total 8.9 mg/dL (8.5-10.1); Chloride 103 mmol/L (98-107); Creatinine, Serum 1.12 mg/dL (0.70-1.30); EST Glomerular Filtration Rate 66 mL/min (>60); Est Glom Filt Rate - Afr Amer 80 mL/min (>60); Globulin 3.3 g/dL (2.2-4.2); Glucose 87 mg/dL (74-106); Magnesium 2.1 mg/dL (1.6-2.6); Potassium 3.3 mmol/L (3.5-5.1); Protein, Total 7.1 g/dL (6.4-8.2); Sodium Level 138 mmol/L (136-145)
== END | disposition home or self-care (01) ==
LOC: LAB 09:39
PROVIDERS: PCP Nurse Practitioner Family; Referring Provider Nurse Practitioner Family; Visit Provider Nurse Practitioner Family
DX: I10 Essential (primary) hypertension (principal); E78.00 Pure hypercholesterolemia, unspecified; Z95.0 Presence of cardiac pacemaker
CPT/HCPCS: 36415; 80053; 83735; 84439; 84443

== ENCOUNTER 2024-07-17 17:32 | Emergency (ER) | payer MEDICARE, SELFPAY ==
[2024-07-17 17:33] VITALS: BP 182/80; PULSE 68; RESP 16; TEMP 36.4; O2SAT 98; BMI 25.4
--- NOTE | 2024-07-17 18:24 | EDS_ITS ---
HPI History of Present Illness Chief Complaint: Nosebleed Narrative Narrative: Patient is a 84-year-old male with past medical history of hypertension, sick sinus syndrome, thrombocytopenia who presented to the emergency department the chief complaint nosebleed. Patient states that about a week ago he had a fall and he landed on his face and he had a nosebleed at that point time. He states that resolved and he had been doing well until tonight he states that he was just about the dinner when he developed a nosebleed. He states that it been going on for about an hour prior to arrival here he states that he could not get it to stop therefore he came here for further evaluation management. Patient denies any blood thinning medications. Patient denies any other trauma or falls. [facility] Medical History COVID-19 Allergic rhinitis Bronchiectasis Sick sinus syndrome due to SA node dysfunction Essential (primary) hypertension Leukopenia Glaucoma Other longterm (current) drug therapy Carotid artery stenosis Sinus bradycardia Hyperlipidemia COPD (chronic obstructive pulmonary disease) Skin cancer Thrombocytopenia Home Medications ?Medication ?Instructions ?Recorded ?Last Taken ?Type amlodipine 5 mg tablet 5 mg PO DAILY #30 tabs 09/22/18 Unknown Rx brimonidine 0.1 % eye drops 1 drp ophthalmic (eye) BID 02/23/20 Unknown History (Alphagan P) latanoprostene bunod 0.024 % eye 1 drp ophthalmic (eye) QPM 02/23/20 Unknown History drops (Vyzulta) pravastatin 40 mg tablet 40 mg PO QHS 02/23/20 Unknown History triamcinolone acetonide 0.1 % 1 applic topical DAILY PRN 03/23/21 Unknown History topical cream ergocalciferol (vitamin D2) 1,250 50,000 unit PO 2XW 04/06/21 Unknown History mcg (50,000 unit) capsule Disability Parking Placard #1 ea 07/02/23 Unknown Rx potassium chloride 10 mEq 10 meq PO QDAY 07/09/24 Unknown History tablet,extended release(part/cryst) Allergy/AdvReac Type Severity Reaction Status Date / Time lisinopril Allergy Other Verified 07/17/24 17:33 Family History Father Skin cancer Mother , brain aneurysm No problems noted. 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) Skin cancer removal History of hernia repair Social History household members: spouse Smoking Status: Former smoker Tobacco: How many years used: 40 how long ago did patient quit smokin, 2ppd second hand exposure: Yes alcohol intake: never substance use type: does not use caffeine: Yes Type: coffee Number of servings: 3 what type of physical activity do you participate in: none seatbelt use: always do you feel safe at home: Yes ROS ROS ED ROS Narrative Constitutional: Denies any fevers, chills, headaches, lightness, dizziness Eyes, ears, nose, throat: Complains of nosebleed as noted above denies change in vision no blurry vision Cardiovascular: Denies chest pain or palpitations Neurological: Denies numbness, weakness, tingling Musculoskeletal: Denies back pain Skin: Denies rashes or lesions EXAM Physical Exam Narrative Exam Narrative: General: Patient lying in bed rest comfortably did not appear to be in acute distress Head: Atraumatic, normocephalic Eyes, nose, throat: Patient has clot noted in his right nare. Patient blew his nose and dislodge the clots he did have anterior bleeding noted. PERRL bilaterally, EOMI bilaterally, no conjunctival injection noted. No nasal septal hematomas noted bilaterally Neck: Soft, supple, trachea midline Cardiovascular: Regular rate and rhythm no murmurs gallops rubs noted Extremities: +5/5 strength noted in the bilateral upper and lower extremities, radial pulses +2/4 in the bilateral extremities, no pedal edema exam Neurological: Patient following commands knew that he was at [facility] year is 2024 Skin: Warm, dry, intact Const Vital Signs: 07/17/24 17:33 07/17/24 20:39 07/17/24 22:32 Temperature 97.5 F L Temperature Source Temporal Pulse Rate 68 82 Respiratory Rate 16 16 Blood Pressure 182/80 H 201/102 H 178/81 H Blood Pressure Mean 114 135 113 Pulse Ox 98 96 Oxygen Delivery Method Room Air Room Air 07/17/24 22:33 Temperature 98.0 F Temperature Source Pulse Rate 65 Respiratory Rate 18 Blood Pressure 178/81 H Blood Pressure Mean 113 Pulse Ox 94 Oxygen Delivery Method MDM MDM MDM Narrative Medical decision making narrative: Patient is a 84-year-old male who presented to the emerged part with chief complaint of epistaxis. Patient states that he waited an hour prior to arrival he states that he had continued bleeding therefore he came here for further evaluation management. States that he is not any blood thinning medications. On the differential diagnose includes but not limited to epistaxis, nasal septal hematoma. Patient had clot dislodged by blowing his right nare multiple times. Afrin was then applied followed by a nasal clip he will be observed and reevaluated. On reevaluation of the patient he still had epistaxis noted. Patient had a Rhino Rocket soaked in TXA placed. He was observed here in the emergency department. Patient during observation had no further bleeding noted. He was noted be hyp ertensive and did not take his nighttime medications therefore he was given clonidine. His blood pressure improved from systolic of 200 to a systolic of 178. He would like to go home at this point time. He is advised to keep a close eye on his blood pressure. He is advised to follow-up with ears nose and throat to have the Rhino Rocket removed. He ambulated several times here in the emergency department without difficulty. He is agreeable this plan as well as significant other bedside all question concerns answered he is discharged home in stable condition. Discharge Plan Triage Chief Complaint: Nosebleed ED Provider: Peter Crabtree Dx/Rx/DC Orders Clinical Impression: Epistaxis Prescriptions: No Action pravastatin 40 mg tablet 40 mg PO QHS Alphagan P 0.1 % drops 1 drp OPHTHALMIC BID Rx Instructions: administer approximately 8 hours apart Vyzulta 0.024 % drops 1 drp OPHTHALMIC QPM triamcinolone acetonide 0.1 % cream 1 applic TOPICAL DAILY PRN ergocalciferol (vitamin D2) 1,250 mcg (50,000 unit) capsule 50,000 unit PO 2XW Patient Comments: 1 (ONE) CAPSULE TWICE WEEKLY X 3 MONTHS potassium chloride 10 mEq tablet,ER particles/crystals 10 meq PO QDAY amlodipine 5 mg tablet 5 mg PO DAILY Qty: 30 11RF (DME) Disability Parking Placard See Rx Instructions .Route .MEDSUPPLY Qty: 1 0RF Rx Instructions: As directed Primary Care Provider: Landy Buchanan Referrals: Landy Buchanan, RECREATION THERAPIST-C [Primary Care Provider] - Saulo Dill MD [Med Staff - Active Staff] - Activity Restrictions/Additional Instructions: Follow-up with the ears nose and throat physician that you referred to do have the Rhino Rocket removed from your nose. Return with worsening symptoms or concerns. Keep a close eye on your blood pressure. Print Language: [place] Disposition Disposition: Home, Self Care
[2024-07-17] MEDS: Oxymetazoline 0.05% 1 SPRAY SPRAY.BTL NASAL (19:00)
[2024-07-17] MEDS: TRANEXAMIC ACID 1,000 MG/10 ML ML OPERA.SITE (20:08)
[2024-07-17 20:39] VITALS: BP 201/102; PULSE 82; RESP 16; O2SAT 96
[2024-07-17] MEDS: cloNIDine HCl 0.2 MG Tablet PO (21:55)
[2024-07-17 22:32] VITALS: BP 178/81
[2024-07-17 22:33] VITALS: BP 178/81; PULSE 65; RESP 18; TEMP 36.7; O2SAT 94
== END 2024-07-17 23:04 | disposition home or self-care (01) ==
PROVIDERS: Emergency Provider Emergency Medicine; PCP Nurse Practitioner Family; Visit Provider Emergency Medicine
DX: R04.0 Epistaxis (principal); I10 Essential (primary) hypertension; E78.5 Hyperlipidemia, unspecified; Z79.899 Other long term (current) drug therapy; Z86.16 Personal history of COVID-19; Z87.891 Personal history of nicotine dependence
CPT/HCPCS: 30903; 99282

== ENCOUNTER → 2025-04-06 | Outpatient (CLI) | payer MEDICARE, SELFPAY ==
[2025-04-06 11:41] LABS: Mucous, Urine 0 SEEN /hpf (<or=2+); Red Blood Cells-Urine 0 SEEN /hpf (0-5)
[2025-04-06 11:49] LABS: Color, Urine Yellow (Yellow); Glucose, Dipstick Normal (Normal); Ketone-Dipstick Negative (Negative); Leukocyte Esterase-Dipstick Negative /ul (Negative); Nitrite-Dipstick Negative (Negative); Occult Blood-Urine Negative /ul (Negative); Protein-Dipstick Negative (Negative); Specific Gravity, Urine 1.020 (1.002-1.030); Urine Bilirubin Dipstick Negative (Negative)
[2025-04-06 11:57] LABS: Squamous Epithelial Cells - UA 0-5 SEEN /hpf (0-5)
[2025-04-06 12:02] LABS: Creatinine, Urine (random) 157.00 mg/dL (39.00-259.00); Microalbumin,Random Urine < 12.0 mg/L (<20 mg/L)
[2025-04-06 12:12] LABS: Cholesterol 131 mg/dL (<=200); Low Density Lipoprotein Calc. 70 mg/dL; PSA,Total - Annual Screen 9.13 ng/mL (0.02-4.00); Triglycerides 76 mg/dL; Very Low Density Lipoprotein 15 mg/dL (5-40); cholesterol:hdl ratio screen 2.84
== END | disposition home or self-care (01) ==
LOC: LABSPEC 11:21
PROVIDERS: PCP Nurse Practitioner Family; Referring Provider Nurse Practitioner Family; Visit Provider Nurse Practitioner Family
DX: Z12.5 Encounter for screening for malignant neoplasm of prostate (principal); I10 Essential (primary) hypertension; E78.2 Mixed hyperlipidemia
CPT/HCPCS: 80061; 81001; 82043; 82570; 84153; 84443; G0103